=== PATIENT | female | born 1940 | race Caucasian/White ===

== ENCOUNTER 2021-01-22 16:25 | Emergency (ER) | payer MEDICAID, OTHER ==
[~2021-01-22] VITALS: Ht 162.6 cm; Wt 64.0 kg
[2021-01-22] MEDS ORDERED: ACETAMINOPHEN 325MG TABLET PO ONE (17:00)
[2021-01-22] MEDS ORDERED: BACITRACIN ZINC OINT UDPKT TOP ONE (17:45)
[2021-01-22] MEDS ORDERED: LIDOCAINE HCL/EPINEPHRINE 1%-EPI 1:100,000 20 ML VIAL INFIL ONE (17:45)
[2021-01-22] MEDS ORDERED: TETANUS, DIPHTHERIA, PERTUSSIS VAC/PF 0.5ML (>7YR OLD) IM ONE (18:30)
[2021-01-22] MEDS ORDERED: ACET-2708 MT (18:32)
[2021-01-22 18:47] VITALS: BP 178/70
== END 2021-01-22 19:04 | disposition home or self-care (01) ==
LOC: ER 16:25
DX: S01.01XA Laceration without foreign body of scalp, initial encounter (principal); S43.492A Other sprain of left shoulder joint, initial encounter; W17.89XA Other fall from one level to another, initial encounter; Y93.01 Activity, walking, marching and hiking; M85.80 Other specified disorders of bone density and structure, unspecified site; R03.0 Elevated blood-pressure reading, without diagnosis of hypertension; Y92.89 Other specified places as the place of occurrence of the external cause
CPT/HCPCS: 29105; 70450; 73030; 99284; A4217; Z7610

== ENCOUNTER 2021-01-25 11:12 | Emergency (ER) | payer MEDICAID, OTHER ==
[~2021-01-25] VITALS: Ht 157.5 cm; Wt 60.0 kg
[~2021-01-25 11:12] MED LIST: ACET-2708 MT
[2021-01-25 11:15] VITALS: BP 151/61
== END 2021-01-25 11:36 | disposition home or self-care (01) ==
LOC: ER 11:12
DX: S01.01XD Laceration without foreign body of scalp, subsequent encounter (principal); X58.XXXD Exposure to other specified factors, subsequent encounter; I10 Essential (primary) hypertension
CPT/HCPCS: 99281